=== PATIENT | female | born 2000 | race Two or more races ===

== ENCOUNTER 2023-10-13 08:35 | Emergency (ER) | payer OTHER ==
[~2023-10-13] VITALS: Ht 165.1 cm; Wt 61.2 kg
[2023-10-13 09:39] LABS: HEMOGLOBIN 11.6 g/dL (12.0-15.00); MEAN CELL VOLUME 86.7 fL (80.00-100.00); MEAN CORPUSCULAR HEMOGLOBIN 29.6 pg (27.00-32.0); MEAN CORPUSCULAR HGB CONC 34.1 g/dl (32.0-36.0); PLATELET COUNT 187 K/uL (150-450); RED BLOOD COUNT 3.92 M/uL (4.00-6.00)
[2023-10-13 09:41] LABS: URINE APPEARANCE Cloudy; URINE BILIRRUBIN Negative (NEGATIVE); URINE BLOOD Large; URINE COLOR Yellow; URINE GLUCOSE Negative (NEGATIVE); URINE LEUKOCYTE Negative; URINE NITRATE Negative; URINE PROTEIN Trace (NEGATIVE)
[2023-10-13 09:44] LABS: URINE RBC 1484.3 uL (0.0-20.8)
[2023-10-13 10:04] LABS: URINE CAST 0.76 uL (0.0-1.40); URINE KETONE 40 (NEGATIVE)
[2023-10-13 10:24] LABS: CALCIUM 8.9 mg/dL (8.5-10.1); CREATININE SERUM 0.46 mg/dL (0.55-1.02); GFR 171.48; POTASSIUM 3.57 mEq/L (3.5-5.1)
[2023-10-13] MEDS ORDERED: ORPHENADRINE CITRATE 30 MG/ML AMPUL ONE (13:27)
[2023-10-13] MEDS ORDERED: ORPHENADRINE CITRATE 30 MG/ML AMPUL IM ONE (13:30)
== END 2023-10-13 15:41 | disposition home or self-care (01) ==
LOC: ER 08:36
PROVIDERS: Emergency Medicine
DX: O20.8 Other hemorrhage in early pregnancy (principal); Z3A.01 Less than 8 weeks gestation of pregnancy